=== PATIENT | female | born 1985 | race African-American/Black ===

== ENCOUNTER 2020-10-19 09:13 | Emergency (ER) | payer OTHER ==
[~2020-10-19] VITALS: Ht 162.6 cm; Wt 75.8 kg
[2020-10-19 09:14] VITALS: BP 124/82
== END 2020-10-19 10:22 | disposition home or self-care (01) ==
LOC: ER 09:13
PROVIDERS: Emergency Medicine
DX: R06.02 Shortness of breath (principal); Z20.822 Contact with and (suspected) exposure to COVID-19; F41.9 Anxiety disorder, unspecified; Z88.5 Allergy status to narcotic agent